=== PATIENT | male | born 1980 | race African-American/Black ===

== ENCOUNTER 2022-08-06 23:51 | Emergency (ER) | payer SELFPAY ==
[~2022-08-06] VITALS: Ht 193 cm; Wt 137.0 kg
[2022-08-07] MEDS ORDERED: IPRATROPIUM BROMIDE (0.02%) 0.5MG/2.5ML NEB HHN STA ×2 (00:24→04:07)
[2022-08-07] MEDS ORDERED: ALBUTEROL (0.083%) 2.5MG/3ML NEB HHN STA ×2 (00:24→04:07)
[2022-08-07] MEDS ORDERED: PREDNISONE 20MG TABLET PO STA (00:24)
[2022-08-07] MEDS ORDERED: P20 MT (05:20)
[2022-08-07] MEDS ORDERED: ALBU6.7H3 INH (05:20)
[2022-08-07 05:45] VITALS: BP 114/65
== END 2022-08-07 05:45 | disposition home or self-care (01) ==
LOC: ER 23:51
DX: J45.901 Unspecified asthma with (acute) exacerbation (principal); Z87.01 Personal history of pneumonia (recurrent)
CPT/HCPCS: 71045; 94640; 99284; J7512; Z7610